=== PATIENT | male | born 1945 ===

== ENCOUNTER 2020-08-14 10:15 | Inpatient (IN) | payer OTHER ==
[~2020-08-14] VITALS: Ht 182.9 cm; Wt 90.7 kg
[2020-08-14] MEDS ORDERED: CRESTOR5 MG PO (12:40)
[2020-08-14] MEDS ORDERED: SYNTHROID PO (13:35)
[2020-08-22] MEDS ORDERED: SYNTHROID175 MCG (08:08)
[2020-08-22] MEDS ORDERED: SILDENAFIL CIT100 MG (08:08)
[2020-08-22] MEDS ORDERED: SYNTHROID200 MCG (08:08)
[2020-08-24] MEDS ORDERED: PERCOCET 5-3251 EACH PO ×2 (08:45→08:58)
[2020-08-24] MEDS ORDERED: DUI500 PO ×2 (08:45→08:58)
[2020-08-24] MEDS ORDERED: ELIQUIS2.5 MG PO ×2 (08:45→08:58)
== END 2020-08-24 14:35 | disposition home or self-care (01) | DRG 470 ==
LOC: SURH 08-21 05:45 → O/R 08-21 05:45 → SURH 08-21 10:15
PROVIDERS: ADMIT Orthopaedic Surgery; ATTEND Orthopaedic Surgery
PROC: 0SRC0J9 Replacement of Right Knee Joint with Synthetic Substitute, Cemented, Open Approach (ICD-10-PCS; principal; 2020-08-21 10:15)
DX: M17.11 Unilateral primary osteoarthritis, right knee (principal); D62 Acute posthemorrhagic anemia; I25.10 Atherosclerotic heart disease of native coronary artery without angina pectoris; E03.9 Hypothyroidism, unspecified; Z53.29 Procedure and treatment not carried out because of patient's decision for other reasons

== ENCOUNTER 2021-10-10 14:13 | Outpatient (CLI) | payer OTHER ==
[~2021-10-10 14:13] MED LIST: CRESTOR5 MG PO; DUI500 PO; ELIQUIS2.5 MG PO; PERCOCET 5-3251 EACH PO; SILDENAFIL CIT100 MG; SYNTHROID PO; SYNTHROID175 MCG; SYNTHROID200 MCG
== END 2021-10-10 14:16 | disposition home or self-care (01) ==
LOC: RAD 14:13
PROVIDERS: ATTEND Orthopaedic Surgery
DX: M25.551 Pain in right hip (principal); M16.11 Unilateral primary osteoarthritis, right hip